=== PATIENT | male | born 1990 | race Caucasian/White ===

== ENCOUNTER 2017-10-18 03:08 | Emergency (ER) | payer MEDICAID ==
[~2017-10-18] VITALS: Ht 182.9 cm; Wt 80.0 kg
[2017-10-18] MEDS ORDERED: LORAZEPAM 0.5MG TABLET PO ONE (12:15)
[2017-10-18 12:36] VITALS: BP 109/73
== END 2017-10-18 13:00 | disposition home or self-care (01) ==
LOC: ER 03:45
DX: F41.9 Anxiety disorder, unspecified (principal); R00.2 Palpitations; F32.9 Major depressive disorder, single episode, unspecified; Z87.891 Personal history of nicotine dependence
CPT/HCPCS: 93005; 99284; Z7610

== ENCOUNTER 2022-10-10 00:53 | Emergency (ER) | payer MEDICAID, OTHER ==
[~2022-10-10] VITALS: Ht 180.3 cm; Wt 87.0 kg
[2022-10-10 00:53] VITALS: BP 129/90
== END 2022-10-10 01:15 | disposition home or self-care (01) ==
LOC: ER 01:09
DX: Z02.89 Encounter for other administrative examinations (principal); R45.1 Restlessness and agitation; F15.10 Other stimulant abuse, uncomplicated; F32.A Depression, unspecified; F41.9 Anxiety disorder, unspecified
CPT/HCPCS: 99283